=== PATIENT | female | born 1945 | race Caucasian/White ===

== ENCOUNTER → 2019-12-28 | Outpatient (CLI) | payer OTHER ==
[~2019-12-28] MED LIST: ARIMIDEX1 MG PO; BONIVA150 MG PO; PEPCID40 MG PO; VITAMIN B-12250 MCG PO; VITAMIN D3250 MC1 PO
== END ==
LOC: LAB 08:00
PROVIDERS: ATTEND Student in an Organized Health Care Education/Training Program
DX: Z01.812 Encounter for preprocedural laboratory examination (principal); Z11.59 Encounter for screening for other viral diseases

== ENCOUNTER → 2020-01-02 | Outpatient (CLI) | payer OTHER ==
--- NOTE | 2020-01-04 18:06 | PATH ---
[facility] [address] [place] [address] PATHOLOGY RPT PROCEDURE Name: EMILY RITTER A Room #: REG [facility] M..#: [id number] Admission: 01/02/20 Date of : 49 Discharge: Report #: [id number] Path Case #: [id number] [facility] Accession Number: [id number] . 01 Material submitted: . rectum - POLYP RECTUM . 01 Clinical history: . Screening, history of polyps. . 02 Diagnosis: Polyp, rectum, endoscopic biopsy: - Hyperplastic polyp. - Negative for dysplasia. (IUV:pit 01/04/2020) QTP 01/04/2020 1012 Local . 02 Electronically signed: . Lissette Rivera MD, Pathologist NPI- [id number] . 01 Gross description: . Received in formalin labeled "Emily Ritter, polyp at rectum" is a 0.4 x 0.3 x 0.1 cm fragment of adkins-brown soft tissue. The specimen is submitted entirely in A1. ([facility]; 01/03/2020) [facility]2020 [facility] . 02 Pathologist provided ICD-10: K62.1 . 02 CPT . 875022 Specimen Comment: A courtesy copy of this report has been sent to [phone] Specimen Comment: Report sent to Performed at: [address], [place] [id number] MD Jose Hi MD Phone: [phone] Performed at: [address] [id number] MD Lissette Rivera MD Phone: [phone]
--- NOTE | 2020-01-09 10:42 | P ---
[facility] [place] [address] PROCEDURE REPORT Name: MATTHEW RITTER Room #: REG TERE Dukes#: [id number] Admission: 01/02/20 Attend Phys: Mark Anthony Bocanegra Discharge: Date of : 49 Report #: [id number] THIS REPORT FOR: cc: Anjel Jones MD, John R. MD McElhinney, Christian C. MD ~ CC: Mark Anthony Jones DATE OF SERVICE: 01/02/2020 PROCEDURE PERFORMED: Colonoscopy with biopsies. HISTORY OF PRESENT ILLNESS: The patient is a 74-year-old female with a history of colon polyps 5 years ago done by different manager shop, also with a family history of colon cancer in her father. She denies any symptoms at this time. Plan is for colonoscopy. DESCRIPTION OF PROCEDURE: The risks and benefits of the procedure were explained to the patient, those risks including but not limited to bleeding, perforation and the risk of sedation. She understood these risks and gave informed consent. Sedation was given using propofol per anesthesia. Next, a digital rectal exam was initially performed, which was normal. Next, using a standard Olympus colonoscope, the scope was placed in the patient's anus and advanced under direct vision to the cecum. The overall prep was excellent. The cecum and ileocecal valve were normal in appearance. Ascending, transverse, descending and sigmoid colon were all normal. In the rectum, there was a 3 mm sessile polyp. This was removed with cold forceps, otherwise normal. On retroflexion, small nonbleeding internal hemorrhoids were noted. The scope was then withdrawn and the procedure terminated. The patient tolerated the procedure well. IMPRESSION: 1. Small rectal polyp. 2. Small internal hemorrhoids. 3. Otherwise, normal colonoscopy. RECOMMENDATIONS: 1. Await biopsy results. 2. Repeat colonoscopy in 5 years. [facility] [address] [place] [address] PROCEDURE REPORT Name: MATTHEW RITTER Room #: REG CL Roseline#: [id number] Admission: 01/02/20 Attend Phys: Mark Anthony Bocanegra Discharge: Date of : 49 Report #: [id number] Thank you for allowing me to participate in her care. <ELECTRONICALLY SIGNED> By: Mark Anthony Victor MD 01/09/20 1042 [id number] [id number] Mark Anthony Victor MD /nt
== END | disposition home or self-care (01) ==
LOC: GI 06:52
PROVIDERS: ATTEND Specialist
DX: Z12.11 Encounter for screening for malignant neoplasm of colon (principal); Z86.010 Personal history of colon polyps; Z80.0 Family history of malignant neoplasm of digestive organs; K62.1 Rectal polyp; K64.8 Other hemorrhoids; K21.9 Gastro-esophageal reflux disease without esophagitis; Z98.890 Other specified postprocedural states; Z79.899 Other long term (current) drug therapy; Z85.3 Personal history of malignant neoplasm of breast
CPT/HCPCS: 62110; 62900